=== PATIENT | male | born 1965 | race Two or more races ===

== ENCOUNTER → 2018-08-19 | Outpatient (CLI) | payer MEDICARE, OTHER | END | disposition home or self-care (01) | LOC: HKI 14:07 | DX: M25.561 Pain in right knee (principal); I10 Essential (primary) hypertension; E11.8 Type 2 diabetes mellitus with unspecified complications; K21.9 Gastro-esophageal reflux disease without esophagitis | CPT/HCPCS: 20610; 73564-50 ==

== ENCOUNTER → 2018-11-18 | Outpatient (CLI) | payer MEDICARE, OTHER | END | disposition home or self-care (01) | LOC: HKI 13:53 | DX: M25.561 Pain in right knee (principal); M25.562 Pain in left knee; D48.0 Neoplasm of uncertain behavior of bone and articular cartilage | CPT/HCPCS: G0463 ==